=== PATIENT | female | born 1970 | race Caucasian/White ===

== ENCOUNTER → 2024-05-12 | Outpatient (CLI) | payer MEDICARE, OTHER ==
[~2024-05-12] MED LIST: ATEN50TA2 PO; CLIN150C17 PO; CLIN30GE TP; CLON-412 PO; COLA100C5 PO; CYCL-707 PO; CYMB60CA4 PO; DOXE50CA PO; HYDR-3713 PO; HYDR12.55 PO; HYDR50TA70 PO; LISI20TA35 PO; MELO15TA28 PO; MUPI2OI TOP; PARO10TA3 PO; TRIA1OI TOP; VENL75TA2 PO; VITA100067 PO
[2024-05-12 14:20] LABS: C REACTIVE PROTEIN QUANTITATIV < 0.50 MG/DL (<1.0); IRON (FE) 129 UG/DL (50-170); PERCENT SATURATION 37.1 % (13.2-45.0); TOTAL IRON BINDING CAPACITY 348 UG/DL (250-425)
[2024-05-12 14:24] LABS: VITAMIN B12 LEVEL 348 PG/ML (211-911)
[2024-05-12 14:25] LABS: BASO % 0.6 % (0.0-1.0); EOS # 0.1 10^3/uL (0.0-0.5); EOS % 1.6 % (0.0-3.0); HEMATOCRIT 38.4 % (36.0-47.0); HEMOGLOBIN 12.5 g/dl (12.0-15.5); LYMPH # 1.5 10^3/uL (1.5-5.0); LYMPH % 20.9 % (24.0-44.0); MEAN CORPUSCULAR HEMOGLOBIN 30.7 pg (27.0-33.0); MEAN CORPUSCULAR HGB CONC 32.6 g/dl (32.0-36.5); MEAN CORPUSCULAR VOLUME 94.3 fl (80.0-96.0); MONO # 0.8 10^3/uL (0.0-0.8); MONO % 10.9 % (2.0-8.0); NEUTROPHILS # 4.7 10^3/uL (1.5-8.5); NEUTROPHILS % 65.7 % (36.0-66.0); PLATELET COUNT, AUTOMATED 379 10^3/uL (150-450); RED BLOOD COUNT 4.07 10^6/uL (4.00-5.40); WHITE BLOOD COUNT 7.1 10^3/uL (4.0-10.0)
[2024-05-12 14:27] LABS: FOLATE 18.3 NG/ML (>5.4)
[2024-05-12 14:33] LABS: ERYTHROCYTE SEDIMENTATION RATE 4 mm/hr (0-30)
== END ==
LOC: M PLALAB 09:26
PROVIDERS: ATTEND Internal Medicine Infectious Disease
DX: L60.3 Nail dystrophy (principal); R93.7 Abnormal findings on diagnostic imaging of other parts of musculoskeletal system

== ENCOUNTER → 2024-06-25 | Outpatient (POV) | payer MEDICARE ==
[~2024-06-25] VITALS: Ht 167.6 cm; Wt 65.5 kg
[~2024-06-25] MED LIST changes: +CLONI1TA PO; +KLON0.5T8 PO; +MIRT1TAB PO; +PRAV80TA2 PO; +PRAZ2CAP PO; +TIZA4CAP3 PO; +VALS1TAB68 PO
[2024-06-25 09:50] VITALS: BP 136/74; O2SAT 99
== END ==
LOC: M IRPOV 09:37
PROVIDERS: ATTEND Radiology Diagnostic Radiology
DX: M51.362 Other intervertebral disc degeneration, lumbar region with discogenic back pain and lower extremity pain (principal); M48.061 Spinal stenosis, lumbar region without neurogenic claudication; M12.88 Other specific arthropathies, not elsewhere classified, other specified site; G89.29 Other chronic pain; M25.551 Pain in right hip; M25.552 Pain in left hip; Z87.891 Personal history of nicotine dependence; Z83.3 Family history of diabetes mellitus; Z82.49 Family history of ischemic heart disease and other diseases of the circulatory system; Z98.1 Arthrodesis status; Z88.5 Allergy status to narcotic agent; Z88.8 Allergy status to other drugs, medicaments and biological substances; Z79.899 Other long term (current) drug therapy

== ENCOUNTER → 2024-10-15 | Outpatient (POV) | payer MEDICARE ==
[~2024-10-15] VITALS: Ht 170.2 cm; Wt 67.3 kg
[~2024-10-15] MED LIST changes: -PRAV80TA2 PO; +PRAV80TA75 PO
[2024-10-15 08:16] VITALS: BP 124/68; O2SAT 98
== END ==
LOC: M IRPOV 07:57
PROVIDERS: ATTEND Registered Nurse School
DX: M51.370 Other intervertebral disc degeneration, lumbosacral region with discogenic back pain only (principal); G89.29 Other chronic pain; Z88.5 Allergy status to narcotic agent; Z88.6 Allergy status to analgesic agent

== ENCOUNTER → 2024-10-17 | Outpatient (CLI) | payer MEDICARE | LOC: M RAD 06:24 | PROVIDERS: ATTEND Radiology Diagnostic Radiology | DX: M51.360 Other intervertebral disc degeneration, lumbar region with discogenic back pain only (principal); M51.27 Other intervertebral disc displacement, lumbosacral region; M48.061 Spinal stenosis, lumbar region without neurogenic claudication ==